=== PATIENT | male | born 1955 | race African-American/Black ===

== ENCOUNTER 2016-11-29 20:39 | Emergency (ER) | payer MEDICARE, MEDICAID ==
[~2016-11-29] VITALS: Ht 182.9 cm; Wt 77.0 kg
[2016-11-30 00:33] VITALS: BP 127/52
== END 2016-11-30 02:21 | disposition home or self-care (01) ==
LOC: ER 20:39
DX: M54.12 Radiculopathy, cervical region (principal); I10 Essential (primary) hypertension; E78.00 Pure hypercholesterolemia, unspecified
CPT/HCPCS: 72040; 93005; 99284

== ENCOUNTER 2018-07-26 07:57 | Emergency (ER) | payer MEDICAID, MEDICARE ==
[~2018-07-26] VITALS: Ht 175.3 cm; Wt 72.0 kg
[2018-07-26] MEDS ORDERED: KETOROLAC 60MG/2ML VIAL IM ONE (10:45)
[2018-07-26 11:13] VITALS: BP 152/89
== END 2018-07-26 11:19 | disposition home or self-care (01) ==
LOC: ER 08:26
DX: S89.92XD Unspecified injury of left lower leg, subsequent encounter (principal); X58.XXXD Exposure to other specified factors, subsequent encounter; I10 Essential (primary) hypertension
CPT/HCPCS: 96372; 99283; J1885